=== PATIENT | male | born 1975 | race African-American/Black ===

== ENCOUNTER 2020-07-26 00:59 | Emergency (ER) | payer SELFPAY ==
[2020-07-26] VITALS (32 sets, daily range): BP systolic 121–184; BP diastolic 72–89; PULSE 52–81; RESP 12–26; TEMP 35.7; O2SAT 97–100
--- NOTE | ~2020-07-26 | XR_ITS ---
EXAMINATION: XR chest 2V DATE: 07/26/2020 01:30 INDICATION: Left chest pain. TECHNIQUE: Frontal and lateral views of the chest were obtained. COMPARISON: CT abdomen and pelvis 02/09/2017 FINDINGS: The chest demonstrates clear lungs without pneumonia, pleural effusion, or pneumothorax. Th e heart size is normal. IMPRESSION: 1. No acute cardiopulmonary disease. Reviewed, dictated and finalized at location A. IANCE INSTALLER
[2020-07-26 01:32] LABS: Basophils Percent Auto 0.5 % (0.2-1.2); Eosinophils Absolute Auto 0.2 K/mm3 (0-0.3); Eosinophils Percent Auto 2.1 % (0-4.4); Hematocrit 43.6 % (42.0-52.0); Immature Granulocyte Absolute 0.02 K/mm3 (0.00-0.031); Immature Granulocyte Percent A 0.2 % (0-0.5); Lymphocytes Percent Auto 31.9 % (18.3-44.2); Mean Corpuscular HGB Conc 32.1 g/dl (32-36); Mean Corpuscular Volume 90.3 fl (80-100); Mean Platelet Volume 10.5 fl (7.4-10.4); Monocytes Absolute Auto 0.7 K/mm3 (0.1-0.6); Monocytes Percent Auto 8.6 % (2.6-8.5); Neutrophils Absolute Auto 4.6 K/mm3 (1.3-6.7); Neutrophils Percent Auto 56.7 % (45.5-73.1); Platelet Count Result 238 k/mm3 (150-375); Red Blood Count 4.83 M/mm3 (4.6-6.20); Red Cell Distribution Width 14.6 % (11.5-14.5); White Blood Count 8.1 K/mm3 (4.5-10.0)
--- NOTE | 2020-07-26 01:37 | ECG_ITS ---
Measurements Intervals [place] Rate: 62 P: 48 [place]: 180 QRS: 22 QRSD: 90 T: 6 QT: 380 QTc: 389 Interpretive Statements SINUS RHYTHM BORDERLINE T WAVE ABNORMALITY- INFERIOR LEADS BORDERLINE ECG Electronically Signed On 07-26-2020 7:10:23 [employer] MACHINE OPERATOR by Alfredo Campuzano D.O.
[2020-07-26 01:42] LABS: INR 0.9; Prothrombin Time 12.8 Seconds (11.1-14.7)
[2020-07-26 01:43] LABS: Partial Thromboplastin Time 29.6 SECONDS (22.3-36.8)
[2020-07-26 01:44] LABS: Anion Gap 8 mmol/L (8-16); Blood Urea Nitrogen 17 mg/dL (9-20); Calcium 9.1 mg/dL (8.4-10.2); Carbon Dioxide 28 mmol/L (22-30); Chloride 106 mmol/L (98-107); Estimated CRCL calculation 91 ml/min; Estimated Glomerular Filt Rate > 60; Glucose 107 mg/dL (75-110); Potassium 4.1 mmol/L (3.4-5.0); Sodium 142 mmol/L (137-145)
[2020-07-26] MEDS: NITROGLYCERIN SL 0.4 MG TABLET SUBLINGUAL ×2 (01:45→01:55)
[2020-07-26 01:56] LABS: Troponin I < 0.012 ng/mL (0.000-0.034)
--- NOTE | 2020-07-26 02:02 | PC.NURSE ---
pt reports pain improved after second dose of SL nitroglycerin.
[2020-07-26] MEDS: KETOROLAC 30 MG/ML VIAL (*BKC) IV PUSH (02:28)
[2020-07-26 05:13] LABS: Troponin I < 0.012 ng/mL (0.000-0.034)
--- NOTE | 2020-07-26 05:15 | ED.CHESTPAIN ---
HPI - Chest Pain General Chief Complaint: Chest Pain Stated Complaint: chest pressure for a few months Time Seen by Provider: 07/26/20 01:07 History of Present Illness HPI narrative: Patient is a 45-year-old male who presents ER with chest pressure. Ongoing for the last couple months. No aggravating factors that he can tell. When he does have discomfort he will lay on his chest and have a pillow to make it feel better. Has not tried any pain medication. No worsening with exertion. Denies fevers or chills or sweats. No sinus congestion sore throat or productive cough. No known trauma. No known cardiac disease. Pain does not radiate. He has been having his current pain for over a day. Related Data Allergies Allergy/AdvReac Type Severity Reaction Status Date / Time No Known Allergies Allergy Mild Verified 09/22/13 16:12 Review of Systems Review of Systems: All systems reviewed & are unremarkable except as noted in HPI and below Constitutional: Constitutional: Denies chills, Denies fever(s) and Denies weakness ENT: Denies nasal congestion and Denies sore throat Cardiovascular: Cardiovascular: Reports chest pain, Denies rapid heart rate and Denies radiating jaw, neck or arm pain Respiratory: Respiratory: Denies cough, Denies dyspnea and Denies wheezing Gastrointestinal: Gastrointestinal: Denies abdominal pain, Denies nausea and Denies vomiting Musculoskeletal: Musculoskeletal: Denies back pain and Denies muscle cramps PMFSH Past Medical History Medical History (Updated 07/26/20 @ 05:20 by Syed Deleon MD) Groin abscess Surgical History Surgical History (Updated 07/26/20 @ 05:17 by Syed Deleon MD) No pertinent past surgical history Social History Social History (Updated 07/26/20 @ 05:17 by Syed Deleon MD) Social History: Regular tobacco use Exam Narrative: Exam Narrative: GENERAL: Well-appearing, well-nourished, and in no acute distress. HEAD: Normocephalic, atraumatic. ENT: Mucous membranes moist. CHEST: Clear to auscultation. No respiratory distress. No reproducible chest wall tenderness HEART: Regular rate and rhythm. Normal peripheral pulses. ABDOMEN: Soft, nontender, nondistended. EXTREMITIES: Normal range of motion. No edema. SKIN: Warm, dry, no rash. NEURO: Alert and oriented x3. Course Course Emergency Course: Troponin negative x2. EKG normal appearance. Normal chest x-ray. Patient's initial blood pressure was in the 180s however it normalized into the 140s prior to any treatment with Toradol or nitroglycerin. Therapies to modify chest pain had no effect. We will continue anti-inflammatories at home recommend follow-up with PCP. Vital Signs Vital signs: Vital Signs Temperature 96.2 F L 07/26/20 01:01 Pulse Rate 64 07/26/20 01:01 Respiratory Rate 18 07/26/20 01:01 Blood Pressure 184/87 H 07/26/20 01:01 Pulse Oximetry 100 07/26/20 01:01 Temperature 96.2 F L 07/26/20 01:01 Pulse Rate 58 L 07/26/20 04:31 Respiratory Rate 16 07/26/20 04:31 Blood Pressure 151/79 H 07/26/20 04:31 Pulse Oximetry 99 07/26/20 04:31 MDM - Chest Pain Lab Data Result diagrams: 07/26/20 01:25 07/26/20 01:25 Labs: Lab Results 07/26/20 07/26/20 07/26/20 Range/Units 01:25 01:25 01:25 WBC 8.1 (4.5-10.0) K/mm3 RBC 4.83 (4.6-6.20) M/mm3 Hgb 14.0 (14.0-18.0) g/dL Hct 43.6 (42.0-52.0) % MCV 90.3 (80-100) fl MCH 29.0 (26-34) pg MCHC 32.1 (32-36) g/dl RDW 14.6 H (11.5-14.5) % Plt Count 238 (150-375) k/mm3 MPV 10.5 H (7.4-10.4) fl Immature Gran % (Auto) 0.2 (0-0.5) % Neut % (Auto) 56.7 (45.5-73.1) % Lymph % (Auto) 31.9 (18.3-44.2) % [place] % (Auto) 8.6 H (2.6-8.5) % Eos % (Auto) 2.1 (0-4.4) % Baso % (Auto) 0.5 (0.2-1.2) % Lymph # (Auto) 2.60 (0.9-3.2) K/mm3 [place] # (Auto) 0.7 H (0.1-0.6) K/mm3 Eos # (Auto) 0.2 (0-0.3) K/mm3 B
== END 2020-07-26 05:50 | disposition home or self-care (01) ==
PROVIDERS: Emergency Provider Emergency Medicine
DX: R07.89 Other chest pain (principal); F17.200 Nicotine dependence, unspecified, uncomplicated; R94.31 Abnormal electrocardiogram [ECG] [EKG]
CPT/HCPCS: 36415; 71046; 80048; 84484; 85025; 85610; 85730; 93005; 96374; 99284; A9270; J1885

== ENCOUNTER 2022-09-30 17:56 | Emergency (ER) | payer OTHER, SELFPAY ==
[2022-09-30] VITALS (11 sets, daily range): BP systolic 147–195; BP diastolic 70–101; PULSE 56–71; RESP 12–18; TEMP 36.8; O2SAT 98–100
--- NOTE | ~2022-09-30 | CT_ITS ---
EXAMINATION: CT abdomen pelvis w con INDICATION: Abdominal pain and bloating TECHNIQUE: Computed tomographic images of the abdomen and pelvis were obtained after the administrati on of 100 cc of Omnipaque 350 intravenous contrast. The dose-length product (DLP) was 339.18 mGy-cm. Automated exposure control and iterative reconstruction technique were employed. COMPARISON: 02/09/2017 FINDINGS: There are small, thin-walled pulmonary cysts in the visualized right lower lobe. The heart size is normal. The liver, spleen, pancreas, gallbladder, and adrenal glands are normal. There is a 5 mm cyst of the right kidney upper pole. The left kidney is unremarkable. No pathologically enlarged abdominal or pelvic lymph nodes are identified. There is calcified atherosclerosis of the aorta and m any of the other arteries. No free intraperitoneal gas or evidence of bowel obstruction. Colonic dive rticulosis is present without evidence of diverticulitis. The appendix is normal. There is moderate l umbar spondylosis at L5-S1. IMPRESSION: 1. No CT correlate for the patient's symptoms. Reviewed, dictated and finalized at location F.
[2022-09-30 18:15] LABS: Basophils Percent Auto 0.5 % (0.2-1.2); Eosinophils Absolute Auto 0.1 K/mm3 (0-0.3); Eosinophils Percent Auto 1.1 % (0-4.4); Hematocrit 44.9 % (42.0-52.0); Hemoglobin 14.5 g/dL (14.0-18.0); Immature Granulocyte Absolute 0.02 K/mm3 (0.00-0.031); Immature Granulocyte Percent A 0.4 % (0-0.5); Lymphocytes Absolute Auto 1.39 K/mm3 (0.9-3.2); Lymphocytes Percent Auto 24.7 % (18.3-44.2); Mean Corpuscular HGB Conc 32.3 g/dl (32-36); Mean Corpuscular Hemoglobin 28.8 pg (26-34); Mean Corpuscular Volume 89.1 fl (80-100); Mean Platelet Volume 10.3 fl (7.4-10.4); Monocytes Absolute Auto 0.3 K/mm3 (0.1-0.6); Neutrophils Absolute Auto 3.8 K/mm3 (1.3-6.7); Neutrophils Percent Auto 67.3 % (45.5-73.1); Platelet Count Result 291 k/mm3 (150-375); Red Blood Count 5.04 M/mm3 (4.6-6.20); Red Cell Distribution Width 14.3 % (11.5-14.5); White Blood Count 5.6 K/mm3 (4.5-10.0)
[2022-09-30 18:26] LABS: Alanine Aminotransferase 21 U/L (6-50); Albumin Level 5.1 g/dL (3.5-5.1); Alkaline Phosphatase 71 U/L (38-126); Anion Gap 11 mmol/L (8-16); Aspartate Amino Transferase 22 U/L (17-59); Bilirubin,Total 0.9 mg/dL (0.2-1.3); Blood Urea Nitrogen 9 mg/dL (9-20); Calcium 9.7 mg/dL (8.4-10.2); Carbon Dioxide 30 mmol/L (22-30); Chloride 100 mmol/L (98-107); Estimated CRCL calculation 99 ml/min; Estimated Glomerular Filt Rate > 60; Glucose 124 mg/dL (65-110); Lipase 635 U/L (23-300); Potassium 3.2 mmol/L (3.4-5.0); Sodium 141 mmol/L (137-145)
--- NOTE | 2022-09-30 21:11 | ED.GENADULT ---
HPI - General Adult General Chief complaint: Abdominal Pain Stated complaint: abd pain, vomiting Time Seen by Provider: 09/30/22 20:39 History of Present Illness HPI narrative: Patient 47-year-old gentleman who presents the emergency department with chief complaint of epigastric pain. The patient reports that for some time he has been having pain and drainage and reports that he is having nausea and vomiting denies diarrhea denies constipation. The patient reports that he has seen GI at [facility] and reports that he has had an upper and lower endoscopy done. Patient states that he does not drink alcohol in excess patient states that he continues to have discomfort and this episode has been going on for several days. Patient states that typically it will hurt for a day have nausea and vomiting the next day and will feel better and then symptoms will return the next day. Related Data Allergies Allergy/AdvReac Type Severity Reaction Status Date / Time No Known Allergies Allergy Mild Verified 09/30/22 20:37 Review of Systems Review of Systems: A 10 system review of systems was completed on the patient and is negative except for what is stated in the HPI. Nursing and ancillary documentation was reviewed. [facility] Past Medical History Medical History Groin abscess Surgical History Surgical History No pertinent past surgical history Social History Social History Social History: Regular tobacco use Exam Narrative: GENERAL: Well-appearing, well-nourished, and in no acute distress. HEAD: Normocephalic, atraumatic. EYES: PERRLA and EOMI. ENT: Nares clear, no rhinorrhea or epistaxis. Mucous membranes moist. NECK: Supple. CHEST: Clear to auscultation. No respiratory distress. HEART: Regular rate and rhythm. No murmur heard. Normal peripheral pulses. ABDOMEN: Soft, nontender, nondistended, normal active bowel sounds. EXTREMITIES: Normal range of motion. No edema. SKIN: Warm, dry, no rash. NEURO: No focal deficits. Alert and oriented x3. PSYCH: Normal mood and affect. Course Vital Signs Vital signs: Vital Signs Temperature 36.8 C 09/30/22 18:00 Pulse Rate 70 09/30/22 18:00 Respiratory Rate 16 09/30/22 18:00 Blood Pressure 147/70 H 09/30/22 18:00 Pulse Oximetry 100 09/30/22 18:00 Temperature 36.8 C 09/30/22 18:00 Pulse Rate 69 09/30/22 21:47 Respiratory Rate 18 09/30/22 21:47 Blood Pressure 195/101 H 09/30/22 21:47 Pulse Oximetry 100 09/30/22 21:47 Medical Decision Making MDM Narrative Medical decision making narrative: Differential diagnosis with pancreatitis, diverticulitis, colitis, gastritis. Laboratory studies were obtained which showed a white blood cell count of 5.6 electrolytes were within normal limits except a lipase of 635. The scan of the abdomen pelvis showed no acute abnormality. Patient is feeling better after antiemetics pain medications and hydration. Patient clinically has mild pancreatitis the patient does have a field contact person that he sees at [facility] the patient will be started on pain control nausea medications and will be instructed to follow-up with his field contact person and also do a clear liquid diet Vital Signs Vital Signs: Vital Signs Temperature 36.8 C 09/30/22 18:00 Pulse Rate 70 09/30/22 18:00 Respiratory Rate 16 09/30/22 18:00 Blood Pressure 147/70 H 09/30/22 18:00 Pulse Oximetry 100 09/30/22 18:00 Temperature 36.8 C 09/30/22 18:00 Pulse Rate 69 09/30/22 21:47 Respiratory Rate 18 09/30/22 21:47 Blood Pressure 195/101 H 09/30/22 21:47 Pulse Oximetry 100 09/30/22 21:47 Lab Data 09/30/22 18:10 09/30/22 18:10 Labs: Lab Results 09/30/22 09/30/22 Range/Units 1
[2022-09-30] MEDS: PROCHLORPERAZINE EDISYLATE 10 MG/2 ML VIAL IV PUSH (21:46)
[2022-09-30] MEDS: SODIUM CHLORIDE 0.9% IV 1,000 ML 999 ML IV CONT (21:46)
[2022-09-30] MEDS: MORPHINE SULFATE (*CRX) 4 MG/ML INJ IV PUSH (21:51)
--- NOTE | 2022-09-30 23:15 | PC.NURSE ---
Report given to JAVED Ledesma.
--- NOTE | 2022-09-30 23:35 | PC.NURSE ---
Report received from JAVED Ch. Assumed care of patient at this time.
== END 2022-09-30 23:54 | disposition home or self-care (01) ==
PROVIDERS: Emergency Medicine; Emergency Provider Emergency Medicine
DX: K85.90 Acute pancreatitis without necrosis or infection, unspecified (principal)
CPT/HCPCS: 36415; 74177; 80053; 83690; 85025; 96361; 96374; 96375; 99284; J0780; J2270; J7030; Q9967

== ENCOUNTER 2023-05-29 18:15 | Emergency (ER) | payer OTHER, SELFPAY ==
[2023-05-29] VITALS (7 sets, daily range): BP systolic 152–167; BP diastolic 90–94; PULSE 81–90; RESP 18–21; TEMP 37.7; O2SAT 98–100
--- NOTE | ~2023-05-29 | CT_ITS ---
EXAMINATION: CT abdomen pelvis w con DATE: 05/29/2023 22:09 INDICATION: Abdominal pain TECHNIQUE: Computed tomography (CT) of the abdomen and pelvis was performed with 100 mL Omnipaque-350 intravenous contrast. Automated exposure control and iterative reconstruction technique were employe d. The dose-length product was 490.38 mGy-cm. COMPARISON: 09/30/2022 FINDINGS: Couple small pneumatoceles in the right middle and right lower lobes. Heart size is normal. No perica rdial or pleural effusion. Liver, gallbladder, spleen, pancreas, bilateral adrenal glands and left ki dney are normal 4 mm low-attenuation cyst at the upper pole the right kidney. There are few scattered colonic diverticula without adjacent inflammatory stranding to suggest diverticulitis. Small bowel a nd appendix are normal. Bladder is normal. Prostatomegaly. No free intraperitoneal gas or fluid. No p athologically enlarged abdominal or pelvic lymphadenopathy. Moderate to severe lower lumbar spondylos is. IMPRESSION: 1. No acute intra-abdominal/pelvic process. 2. Prostatomegaly. Reviewed, dictated and finalized at location A. L OFFICE ADMINISTRATOR
[2023-05-29 20:53] LABS: Basophils Percent Auto 0.6 % (0.2-1.2); Eosinophils Absolute Auto 0.1 K/mm3 (0-0.3); Eosinophils Percent Auto 0.7 % (0-4.4); Hematocrit 50.1 % (42.0-52.0); Immature Granulocyte Absolute 0.01 K/mm3 (0.00-0.031); Immature Granulocyte Percent A 0.1 % (0-0.5); Lymphocytes Absolute Auto 2.51 K/mm3 (0.9-3.2); Lymphocytes Percent Auto 37.2 % (18.3-44.2); Mean Corpuscular HGB Conc 31.9 g/dl (32-36); Mean Corpuscular Hemoglobin 28.1 pg (26-34); Mean Platelet Volume 10.7 fl (7.4-10.4); Monocytes Absolute Auto 0.6 K/mm3 (0.1-0.6); Monocytes Percent Auto 8.3 % (2.6-8.5); Neutrophils Absolute Auto 3.6 K/mm3 (1.3-6.7); Neutrophils Percent Auto 53.1 % (45.5-73.1); Platelet Count Result 275 k/mm3 (150-375); Red Blood Count 5.69 M/mm3 (4.6-6.20); Red Cell Distribution Width 14.3 % (11.5-14.5); White Blood Count 6.8 K/mm3 (4.5-10.0)
[2023-05-29 21:04] LABS: Alanine Aminotransferase 26 U/L (6-50); Albumin Level 5.2 g/dL (3.5-5.1); Alkaline Phosphatase 63 U/L (38-126); Anion Gap 13 mmol/L (8-16); Aspartate Amino Transferase 30 U/L (17-59); Bilirubin,Total 1.2 mg/dL (0.2-1.3); Blood Urea Nitrogen 16 mg/dL (9-20); Calcium 9.8 mg/dL (8.4-10.2); Carbon Dioxide 27 mmol/L (22-30); Chloride 100 mmol/L (98-107); Estimated CRCL calculation 80 ml/min; Estimated Glomerular Filt Rate > 60; Glucose 119 mg/dL (65-110); Lipase 111 U/L (23-300); Potassium 3.6 mmol/L (3.4-5.0); Sodium 140 mmol/L (137-145)
[2023-05-29] MEDS: FAMOTIDINE 20 MG/2 ML VIAL IV PUSH (21:55)
[2023-05-29] MEDS: SODIUM CHLORIDE 0.9% IV 1,000 ML 999 ML IV CONT (21:55)
[2023-05-29] MEDS: ONDANSETRON INJ 4 MG/2 ML VIAL IV PUSH (21:55)
--- NOTE | 2023-05-29 22:30 | PC.NURSE ---
patient requesting pain medications. provider aware
[2023-05-29] MEDS: KETOROLAC 30 MG/ML VIAL (*BKC) IV PUSH (22:54)
[2023-05-29] MEDS: DICYCLOMINE HCL 10 MG CAPSULE PO (22:54)
--- NOTE | 2023-05-29 23:24 | ED.ABDPAIN ---
HPI - Abdominal Pain General Chief Complaint: Abdominal Pain Stated Complaint: abd pain Time Seen by Provider: 05/29/23 21:40 History of Present Illness HPI narrative: patient presents the emergency department from home with nausea vomiting for the past week. Also abdominal pain that moves around depending on his position. States he gets similar symptoms roughly once a year. He has been seen by etcher aircraft without a specific diagnosis or explanation. Denies fevers and chills. denies diarrhea but states he also has not been able to eat or drink anything. Related Data Allergies Allergy/AdvReac Type Severity Reaction Status Date / Time No Known Allergies Allergy Mild Verified 09/30/22 20:37 Review of Systems Review of Systems: Negative except for what is documented in the HPI PMFSH Past Medical History Medical History Groin abscess Surgical History Surgical History No pertinent past surgical history Social History Social History Social History: Regular tobacco use Exam Narrative: GENERAL: Well-appearing, well-nourished, and in no acute distress. HEAD: Normocephalic, atraumatic. EYES: PERRLA and EOMI. ENT: Nares clear, no rhinorrhea or epistaxis. Mucous membranes moist. NECK: Supple. CHEST: Clear to auscultation. No respiratory distress. HEART: Regular rate and rhythm. ABDOMEN: Soft, nontender, nondistended. EXTREMITIES: Normal range of motion. No edema. SKIN: Warm, dry, no rash. NEURO: No focal deficits. Alert and oriented x3. PSYCH: Normal mood and affect. Course Course Emergency Course: abdomen soft and nontender. However due to pain CT ordered. CT is unremarkable. Patient given Toradol and Bentyl. Will DC to home Vital Signs Vital signs: Vital Signs Temperature 37.7 C H 05/29/23 18:57 Pulse Rate 81 05/29/23 18:57 Respiratory Rate 18 05/29/23 18:57 Blood Pressure 167/94 H 05/29/23 18:57 Pulse Oximetry 100 05/29/23 18:57 Temperature 37.7 C H 05/29/23 18:57 Pulse Rate 90 05/29/23 21:54 Respiratory Rate 21 H 05/29/23 21:54 Blood Pressure 152/90 H 05/29/23 23:02 Pulse Oximetry 100 05/29/23 23:00 MDM - Abdominal Pain Lab Data 05/29/23 20:47 05/29/23 20:46 Labs: Lab Results 05/29/23 05/29/23 Range/Units 20:46 20:47 WBC 6.8 (4.5-10.0) K/mm3 RBC 5.69 (4.6-6.20) M/mm3 Hgb 16.0 (14.0-18.0) g/dL Hct 50.1 (42.0-52.0) % MCV 88.0 (80-100) fl MCH 28.1 (26-34) pg MCHC 31.9 L (32-36) g/dl RDW 14.3 (11.5-14.5) % Plt Count 275 (150-375) k/mm3 MPV 10.7 H (7.4-10.4) fl Immature Gran % (Auto) 0.1 (0-0.5) % Neut % (Auto) 53.1 (45.5-73.1) % Lymph % (Auto) 37.2 (18.3-44.2) % [place] % (Auto) 8.3 (2.6-8.5) % Eos % (Auto) 0.7 (0-4.4) % Baso % (Auto) 0.6 (0.2-1.2) % Lymph # (Auto) 2.51 (0.9-3.2) K/mm3 [place] # (Auto) 0.6 (0.1-0.6) K/mm3 Eos # (Auto) 0.1 (0-0.3) K/mm3 Baso # (Auto) 0.0 (0.0-0.1) K/mm3 Abs Immat Gran (auto) 0.01 (0.00-0.031) K/mm3 Absolute Neuts (auto) 3.6 (1.3-6.7) K/mm3 Absolute Nucleated RBC 0.0 (0.0-0.012) K/mm3 Nucleated RBC % 0.0 (0.0-0.2) % Sodium 140 (137-145) mmol/L Potassium 3.6 (3.4-5.0) mmol/L Chloride 100 (98-107) mmol/L Carbon Dioxide 27 (22-30) mmol/L Anion Gap 13 (8-16) mmol/L BUN 16 (9-20) mg/dL Creatinine 1.00 (0.7-1.3) mg/dL Estim Creat Clear Calc 80 ml/min Estimated GFR > 60 (59 - ) Glucose 119 H (65-110) mg/dL Calcium 9.8 (8.4-10.2) mg/dL Total Bilirubin 1.2 (0.2-1.3) mg/dL AST 30 (17-59) U/L ALT 26 (6-50) U/L Alkaline Phosphatase 63 (38-126) U/L Total Protein 9.0 H (6.3-8.2) g/dL Albumin 5.2 H (3.5-5.1) g/dL Lipase 111 (23-300) U/
[2023-05-30 00:08] VITALS: BP 178/93; PULSE 78; RESP 19; O2SAT 100
== END 2023-05-30 00:08 | disposition home or self-care (01) ==
PROVIDERS: Emergency Provider Emergency Medicine
DX: R11.2 Nausea with vomiting, unspecified (principal); R10.84 Generalized abdominal pain
CPT/HCPCS: 36415; 74177; 80053; 83690; 85025; 96361; 96374; 96375; 99284; A9270; J1885; J2405; J7030; Q9967

== ENCOUNTER 2024-01-26 14:48 | Emergency (ER) | payer OTHER, SELFPAY ==
[2024-01-26] VITALS (11 sets, daily range): BP systolic 168–189; BP diastolic 70–88; PULSE 62–68; RESP 16–25; TEMP 37.1; O2SAT 100
--- NOTE | ~2024-01-26 | CT_ITS ---
CT abdomen pelvis w con Ordering provider: Marshall Mayberry MD History: 48 years Male with . Abdominal pain . Comparison: May 29, 2023 Technique: CT abdomen and pelvis with IV and without oral contrast. Automated exposure control and it erative reconstruction technique were employed. The dose-length product was 412.71 mGy-cm. 100 mL Omn ipaque 350 was given IV. Findings: VISUALIZED LOWER CHEST: Small emphysematous blebs seen in the right lower lobe and middle lobe. UPPER ABDOMINAL ORGANS: Liver: Mild fat infiltration. Gallbladder: Normal. Spleen: Normal. Stomach/duodenum: Normal. Pancreas: Normal. Adrenals: Normal. Kidneys: Tiny cyst in the right kidney lower pole. PELVIC ORGANS: The bladder shows slightly thickened wall posteriorly. Slight enlargement of the prost ate. BOWEL AND MESENTERY: Colon: Mild sigmoid diverticulosis without diverticulitis. Thickened wall of the rectum. Clinical marysol luation advised. Slight thickening of the wall of the transverse and descending colon. Normal appendi x. Small Bowel: Normal. No obstruction. Peritoneum/mesentery: No free air or free fluid. No mesenteric lymphadenopathy. RETROPERITONEUM: Mild atheromatous disease of the abdominal aorta. No retroperitoneal lymphadenopat hy. MUSCULOSKELETAL: Superficial soft tissues: Left fat containing inguinal hernia. The superficial soft tissues are norm al. Bones: Age appropriate degenerative changes of the spine. IMPRESSION: 1. No acute abdominal process. 2. Thickened wall of the rectum. Clinical evaluation advised. Slight thickening of the transverse an d descending colon. 3. Thickened wall of the posterior aspect of the urinary bladder. Evaluation for cystitis or infiltr ative process advised. 4. Left fat-containing inguinal hernia. Reviewed, dictated and finalized at location A. IMPRESSION: 1. No acute abdominal process. 2. Thickened wall of the rectum. Clinical evaluation advised. Slight thickenin g of the transverse and descending colon. 3. Thickened wall of the posterior aspect of the urinary bladder. Evaluation f or cystitis or infiltrative process advised. 4. Left fat-containing inguinal hernia.
--- NOTE | 2024-01-26 15:18 | ED.ABDPAIN ---
HPI - Abdominal Pain General Chief Complaint: Abdominal Pain <Marshall Mayberry MD - Last Filed: 01/27/24 20:05> Stated Complaint: abd pain, n/v, fever <Marshall Mayberry MD - Last Filed: 01/27/24 20:05> Time Seen by Provider: 01/26/24 15:18 <Marshall Mayberry MD - Last Filed: 01/27/24 20:05> Source: patient and family <Marshall Mayberry MD - Last Filed: 01/27/24 20:05> Mode of arrival: ambulatory <Marshall Mayberry MD - Last Filed: 01/27/24 20:05> Limitations: no limitations <Marshall Mayberry MD - Last Filed: 01/27/24 20:05> History of Present Illness HPI narrative: 48 years old male came to the ED by private car complaining of generalized abdominal pain associated with nausea and vomiting been going for years often on, without specific diagnosis. The pain started 2 days ago. History of hypertension, GERD, tobacco dependent and marijuana use daily. He denies history of abdominal surgery. Patient reported that his abdominal pain exact is the same as in the past.. He denies any relieving factors, he reports everything he does causing pain. <Marshall Mayberry MD - Last Filed: 01/27/24 20:05> Related Data Allergies/Adverse Reactions: Allergies Allergy/AdvReac Type Severity Reaction Status Date / Time No Known Allergies Allergy Mild Verified 01/26/24 14:50 <Marshall Mayberry MD - Last Filed: 01/27/24 20:05> Review of Systems Review of Systems: All systems reviewed & are unremarkable except as noted in HPI and below <Marshall Mayberry MD - Last Filed: 01/27/24 20:05> PMFSH Past Medical History Medical History: Medical History Groin abscess <Marshall Mayberry MD - Last Filed: 01/27/24 20:05> Surgical History Surgical History: Surgical History No pertinent past surgical history <Marshall Mayberry MD - Last Filed: 01/27/24 20:05> Social History Social History: Social History Social History: Regular tobacco use <Marshall Mayberry MD - Last Filed: 01/27/24 20:05> Exam Narrative: General appearance: Well-developed, well-nourished patient unable to lay down flat, taking the knee-chest position Skin: Normal color Head: Normocephalic, nontraumatic Eyes: Clear conjunctiva ENT: Oropharynx normal, ears normal, nose normal Neck: Supple, nontender Chest and respiratory: Airway patent, no respiratory distress, no accessory muscle use Heart: Regular rate/rhythm Abdomen: Soft, nontender, no organomegaly, quiet bowel sounds Vascular: Normal peripheral pulses, normal capillary refill. Musculoskeletal: Normal range of motion, nontender back Neurologic: Alert and oriented ?3, SWITCH MAKER is normal as tested, no gross motor deficit <Marshall Mayberry MD - Last Filed: 01/27/24 20:05> Course Consultations Consultation #1: Patient was signed out to Dr. Gan at shift change. Waiting for labs and CT abdomen and pelvis. Cannabis induced hyperemesis is my concern. <Marshall Mayberry MD - Last Filed: 01/27/24 20:05> Date: 01/26/24 <Marshall Mayberry MD - Last Filed: 01/27/24 20:05> Time: 19:09 <Marshall Mayberry MD - Last Filed: 01/27/24 20:05> Vital Signs Vital signs: Vital Signs Pulse Rate 65 01/26/24 15:01 Respiratory Rate 25 H 01/26/24 15:01 Pulse Oximetry 100 01/26/24 15:01 Temperature 37.1 C 01/26/24 21:25 Pulse Rate 68 01/26/24 21:25 Respiratory Rate 19 01/26/24 21:25 Blood Pressure 180/70 H 01/26/24 21:25 Pulse Oximetry 100 01/26/24 21:25 <Marshall Mayberry MD - Last Filed: 01/27/24 20:05>
[2024-01-26] MEDS: SODIUM CHLORIDE 0.9% IV 1,000 ML 999 ML IV CONT ×2 (16:06→17:28)
[2024-01-26] MEDS: ONDANSETRON INJ 4 MG/2 ML VIAL IV PUSH (16:06)
[2024-01-26] MEDS: HYDROmorphone HCL INJ (*CRX) 1 MG/ML SYR 0.5 MG IV PUSH (16:06)
[2024-01-26 16:09] LABS: Basophils Percent Auto 0.2 % (0.2-1.2); Eosinophils Percent Auto 0.5 % (0-4.4); Hematocrit 48.8 % (42.0-52.0); Hemoglobin 15.8 g/dL (14.0-18.0); Immature Granulocyte Absolute 0.03 K/mm3 (0.00-0.031); Immature Granulocyte Percent A 0.4 % (0-0.5); Lymphocytes Absolute Auto 1.08 K/mm3 (0.9-3.2); Lymphocytes Percent Auto 13.2 % (18.3-44.2); Mean Corpuscular HGB Conc 32.4 g/dl (32-36); Mean Corpuscular Hemoglobin 29.2 pg (26-34); Mean Platelet Volume 10.6 fl (7.4-10.4); Monocytes Absolute Auto 0.3 K/mm3 (0.1-0.6); Monocytes Percent Auto 3.7 % (2.6-8.5); Neutrophils Absolute Auto 6.7 K/mm3 (1.3-6.7); Platelet Count Result 266 k/mm3 (150-375); Red Blood Count 5.42 M/mm3 (4.6-6.20); White Blood Count 8.2 K/mm3 (4.5-10.0)
[2024-01-26 17:57] LABS: Alanine Aminotransferase 19 U/L (6-50); Albumin Level 4.4 g/dL (3.5-5.1); Alkaline Phosphatase 63 U/L (38-126); Anion Gap 10 mmol/L (4-12); Aspartate Amino Transferase 22 U/L (17-59); Bilirubin,Total 0.4 mg/dL (0.2-1.3); Blood Urea Nitrogen 8 mg/dL (9-20); Carbon Dioxide 25 mmol/L (22-30); Chloride 105 mmol/L (98-107); Estimated CRCL calculation 102 ml/min; Estimated Glomerular Filt Rate > 60; Glucose 110 mg/dL (65-110); Lipase 78 U/L (23-300); Potassium 4.2 mmol/L (3.4-5.0); Sodium 140 mmol/L (137-145)
--- NOTE | 2024-01-26 18:58 | PC.NURSE ---
pt went to bathroom and did not provide a urine sample, stated he forgot.
[2024-01-26 19:57] LABS: Add Urine Microscopic? YES; Appearance Urine Clear (Clear); Bacteria Urine None Seen /hpf; Bilirubin Urine Negative (Negative); Blood Urine Negative (Negative); Color Urine Yellow (Yellow); Glucose Urine UA Negative (Negative); Ketones Urine Negative (Negative); Leukocyte Esterase Ur Negative LEU/UL (Negative); Nitrate Urine Negative (Negative); Non Pathogenic Casts 0-2; Protein Urine Trace mg/dL (Negative); RBC Urine 0-2 /hpf (0-2); Specific Grav Ur > 1.045 (1.001-1.035); Squamous Epithelial Cell Urine None Seen /hpf (Few); Urobilinogen Urine 0.2 mg/dL (<2.0); WBC Urine 0-5 /hpf (0-3)
[2024-01-26] MEDS: PANTOPRAZOLE SODIUM IV 40 MG VIAL IV PUSH (20:08)
[2024-01-26] MEDS: HALOPERIDOL LACTATE 5 MG/ML VIAL IV PUSH (20:19)
== END 2024-01-26 21:26 | disposition home or self-care (01) ==
PROVIDERS: Emergency Medicine; Emergency Provider Emergency Medicine
DX: R11.2 Nausea with vomiting, unspecified (principal); I10 Essential (primary) hypertension
CPT/HCPCS: 36415; 74177; 80053; 81001; 83690; 85025; 96361; 96374; 96375; 99284; J1170; J1630; J2405; J2470; J7030; Q9967